=== PATIENT | male | born 2000 | race Caucasian/White ===

== ENCOUNTER → 2022-10-06 | Outpatient (CLI) | payer OTHER ==
--- NOTE | 2022-10-06 07:25 | MR ---
EXAMINATION TYPE: MR lumbar spine wo con DATE OF EXAM: 10/06/2022 COMPARISON: None HISTORY: Low back pain TECHNIQUE: Multiplanar, multisequence images of the lumbar spine were acquired without IV contrast. FINDINGS: Lumbar segments are intact. Straightening of the normal lumbar lordosis. No paraspinal masses are aditya ntified. Conus medullaris has a normal appearance. Rudimentary disc at S1-S2. L1-L2: Normal disc appearance without desiccation. No herniation, protrusion or disc bulging. No ca nal stenosis is present. Foramina are patent bilaterally. L2-L3: Normal disc appearance without desiccation. No herniation, protrusion or disc bulging. No ca nal stenosis is present. Foramina are patent bilaterally. L3-L4: Normal disc appearance without desiccation. No herniation, protrusion or disc bulging. No ca nal stenosis is present. Foramina are patent bilaterally. L4-L5: Normal disc appearance without desiccation. No herniation, protrusion or disc bulging. No ca nal stenosis is present. Foramina are patent bilaterally. L5-S1: Small central disc protrusion without central canal stenosis. Foramina are patent bilaterally. Retroaortic left renal vein. IMPRESSION: Small L5-S1 disc herniation without central canal stenosis. No significant central canal or foraminal stenosis throughout the visualized lumbar spine.
== END | disposition home or self-care (01) ==
LOC: RADMRIMAIN 06:36
PROVIDERS: ATTEND Internal Medicine
DX: M51.27 Other intervertebral disc displacement, lumbosacral region (principal)
CPT/HCPCS: 72148